=== PATIENT | female | born 1940 | race Caucasian/White ===

== ENCOUNTER 2022-11-01 12:17 | Inpatient (IN) | payer MEDICARE ==
[~2022-11-01] VITALS: Ht 157.5 cm; Wt 58.1 kg
[2022-11-01] MEDS ORDERED: MECLIZINE HCL 25 MG TABLET PO ONE (13:00)
[2022-11-01] MEDS ORDERED: IV NORMAL SALINE 1000 ML BAG IV ONE (13:00)
[2022-11-01] MEDS ORDERED: ONDANSETRON 4 MG/2 ML VIAL IV ONE (13:00)
[2022-11-01 13:19] LABS: HEMATOCRIT 40.8 % (31.2-41.9); MEAN CORPUSCULAR HEMOGLOBIN 31.2 uug (24.7-32.8); MEAN CORPUSCULAR VOLUME 90.1 fL (75.5-95.3); PLATELET COUNT (AUTO) 218 K/uL (179-408)
[2022-11-01] MEDS: MAGNESIUM SULFATE/D5W 100 ML IV SCH ×2 (13:30→15:15)
[2022-11-01 13:45] LABS: CARBON DIOXIDE 22 mmol/L (21-32); CHLORIDE 102 mmol/L (98-107); CREATININE 0.8 mg/dL (0.6-1.3); GLUCOSE 188 mg/dL (74-106); POTASSIUM 3.4 mmol/L (3.5-5.1); UREA NITROGEN, BLOOD 24 mg/dL (7-18)
[2022-11-01] MEDS ORDERED: IV NORMAL SALINE 250 ML IV ONE (13:49)
[2022-11-01] MEDS ORDERED: IOHEXOL 350 100 ML INFUS..BTL ONE (13:49)
[2022-11-01] MEDS ORDERED: SWABABLE VALVE TRANSFER SET EA MC ONE (13:49)
[2022-11-01] MEDS ORDERED: DILTIAZEM HCL IV 125 MG in IV DEXTROSE 5% 100 ML IV ONE (14:00)
[2022-11-01] MEDS ORDERED: DILTIAZEM HCL 25 MG IV IV ONE (14:00)
[2022-11-01] MEDS ORDERED: ASPIRIN 81 MG TAB.CHEW PO ONE (14:00)
--- NOTE | 2022-11-01 14:00 | NUR ---
Pt BIBA with c/o dizziness with nausea that started this morning, emesis absent. Seen by JORGE LUIS for MSE.
[2022-11-01] MEDS ORDERED: MECLIZINE HCL 25 MG TABLET ONE (14:12)
[2022-11-01] MEDS ORDERED: ASPIRIN 81 MG TAB.CHEW ONE (14:12)
[2022-11-01] MEDS ORDERED: ONDANSETRON 4 MG/2 ML VIAL ONE (14:12)
[2022-11-01 14:45] LABS: MAGNESIUM 1.7 mg/dL (1.8-2.4); PHOSPHOROUS 2.9 mg/dL (2.5-4.9)
[2022-11-01] MEDS ORDERED: MAGNESIUM SULFATE/D5W 100 ML ONE ×2 (14:55→16:33)
[2022-11-01] MEDS ORDERED: DILTIAZEM HCL 25 MG IV ONE (14:56)
--- NOTE | 2022-11-01 15:00 | NUR ---
Clip Riveter stated that pt needed PICC line. Explained to her that there was no order from the admitting nurse.
[2022-11-01] MEDS ORDERED: MAGNESIUM HYDROXIDE 30 ML LIQUID UDC PO PRN (15:30)
[2022-11-01] MEDS ORDERED: ONDANSETRON 4 MG/2 ML VIAL IV PRN (15:30)
[2022-11-01] MEDS ORDERED: ZOLPIDEM 5 MG TABLET PO PRN (15:30)
[2022-11-01] MEDS ORDERED: REMEDY ESSENTIAL ZINC PASTE 113 GM TP PRN (15:30)
[2022-11-01] MEDS ORDERED: ACETAMINOPHEN 325 MG TABLET PO PRN (15:30)
[2022-11-01 15:59] LABS: THYROID STIMULATING HORMONE 0.813 mIU/mL (0.358-3.740)
[2022-11-01] MEDS ORDERED: POTASSIUM CHLORIDE 20 MEQ TAB.PRT.SR PO ONE (16:00)
--- NOTE | 2022-11-01 16:00 | NUR ---
Pt is admitted on Telemetry unit, room 325, under the medical care of Dr. Caroline Baez with admitting dx of A-Fib with Rapid Ventricular Response.
--- NOTE | 2022-11-01 16:00 | NUR ---
Held Maricel Mccormick d/t pt's HR ranging between 60-70 and BP WNR. MD notified.
--- NOTE | 2022-11-01 16:28 | NUR ---
Gave report to Nora BYRD.
--- NOTE | 2022-11-01 17:21 | NUR ---
Pt was transported to Tele unit to Room 325 by [employer].
[2022-11-01 17:30] VITALS: BP 124/58
[2022-11-01] MEDS: POTASSIUM CHLORIDE 50 ML IV SCH ×2 (17:30→18:06)
--- NOTE | 2022-11-01 19:10 | NUR ---
Patient is awake, alert, oriented x 4, not in any form of distress, on room air. Peripheral IV on the left AC, patent with no signs of infection. Vital signs stable. Followed up with Caroline Baez STREET SUPERVISOR regarding patient's refusal of IV potassium 2nd bag and that there's also a PO potassium 40mEq due. Per STREET SUPERVISOR the PO dose is enough and it's OK not to administer the 2nd bag of IV potassium. Assisted patient with her needs and assisted to the bathroom to void then back to bed. Daughter at bedside. Munir light and frequently used items placed within reach. Endorsed accordingly to button sewer hand nurse.
[2022-11-01 20:00] VITALS: BP 150/63
--- NOTE | 2022-11-01 20:20 | NUR ---
Patient troponin 1537 notify Pattie Baez with order of EKG.
[2022-11-01] MEDS: ENOXAPARIN SODIUM 60 MG/0.6 ML DISP.SYRIN SQ SCH (21:34)
--- NOTE | 2022-11-01 22:20 | NUR ---
EKG DONE, SINUS RHYTHM SINUS SLOANE THE RESULTS.
[2022-11-02] VITALS: BP 104/56
[2022-11-02] MEDS ORDERED: IV NS 1000 ML 1,000 ML IV PRN (00:15)
[2022-11-02 01:42] LABS: *BILIRUBIN,URIN NEGATIVE (NEGATIVE); *BLOOD, URINE NEGATIVE (NEGATIVE); *CLARITY,URINE CLEAR (CLEAR); *COLOR,URINE YELLOW (YELLOW); *KETONES,URINE 4+ (NEGATIVE); *UROBILINOGEN,URINE 0.2 E.U./dl (NORMAL); LEUKOCYTE ESTERASE ,URINE NEGATIVE (NEGATIVE); NITRITE, URINE NEGATIVE (NEGATIVE); UGLUCOSE NEGATIVE (NEGATIVE)
--- NOTE | 2022-11-02 02:31 | NUR ---
Repeat troponin resulted 2295, notify Blossom Giordano Np with no new order at this time, cont to monitor.
[2022-11-02 04:00] VITALS: BP 108/67
[2022-11-02 06:25] LABS: MEAN CORPUSCULAR HEMOGLOBIN 31.6 uug (24.7-32.8); MEAN CORPUSCULAR VOLUME 89.2 fL (75.5-95.3); PLATELET COUNT (AUTO) 221 K/uL (179-408)
--- NOTE | 2022-11-02 06:39 | NUR ---
Patient awake, no sob no chest pain, sinus rhythm sinus teri on tele monitor, patient stated she fine, ambulate to the toilet for bladder elimination, no further episode of dizziness, nausea or diarrhea, cont to monitor.
[2022-11-02 06:48] LABS: CREATININE 0.8 mg/dL (0.6-1.3); MAGNESIUM 2.2 mg/dL (1.8-2.4); PHOSPHOROUS 2.9 mg/dL (2.5-4.9); POTASSIUM 3.8 mmol/L (3.5-5.1)
[2022-11-02] MEDS: ASPIRIN 81 MG TAB.CHEW PO SCH (09:21)
[2022-11-02] MEDS: ENOXAPARIN SODIUM 60 MG/0.6 ML DISP.SYRIN SQ SCH ×2 (09:23→21:00)
[2022-11-02 11:05] VITALS: BP 117/56
[2022-11-02] MEDS ORDERED: FLUV80TA2 PO (11:26)
[2022-11-02] MEDS ORDERED: CALC-952 PO (11:26)
[2022-11-02] MEDS ORDERED: AMLO1CAP6 PO (11:26)
[2022-11-02] MEDS ORDERED: ESTR-7 PO (11:26)
[2022-11-02] MEDS ORDERED: OMEG1CAP74 PO (11:26)
[2022-11-02] MEDS ORDERED: MECLIZINE HCL 12.5 MG TABLET PO PRN (12:45)
[2022-11-02 15:01] VITALS: BP 133/58
[2022-11-02 20:34] VITALS: BP 141/64
[2022-11-02] MEDS ORDERED: ATORVASTATIN 40 MG TABLET PO SCH (21:00)
[2022-11-03 00:05] VITALS: BP 123/57
[2022-11-03 04:05] VITALS: BP 147/66
[2022-11-03] MEDS: ENOXAPARIN SODIUM 60 MG/0.6 ML DISP.SYRIN SQ SCH (09:00)
[2022-11-03] MEDS: ASPIRIN 81 MG TAB.CHEW PO SCH (09:15)
--- NOTE | 2022-11-03 09:15 | NUR ---
DEPARTED TO [place] FOR PROCEDURE. ALERT AND ABLE TO MAKE NEEDS KNOWN. DENIES PAIN. VITALS STABLE. TRANSFERRED VIA STRETCHER. ROCHELLE MONTANEZ
--- NOTE | 2022-11-03 10:46 | NUR ---
ARRIVED FROM [place], ALERT AND ABLE TO MAKE NEEDS KNOWN, DENIES PAIN. NO COMPLAINTS OF DIZZINESS. VITALS STABLE. AMBULATES TO REST ROOM VIA STANDBY ASSIST. CURRENTLY IN BED. DAUGHTER AT BEDSIDE. CALL HELM WITHIN REACH. GERMAN Brown RN
[2022-11-03] MEDS ORDERED: ATOR40TA PO (11:43)
[2022-11-03] MEDS ORDERED: APIX2.5T PO (11:43)
[2022-11-03] MEDS ORDERED: MECL-159 PO (11:43)
[2022-11-03 11:44] VITALS: BP 123/52
--- NOTE | 2022-11-03 16:02 | NUR ---
DISCHARGED TO HOME. ALERT AND ABLE TO MAKE NEEDS KNOWN. DENIES PAIN. VITALS STABLE. DISCHARGE INSTRUCTIONS GIVEN TO PATIENT AND DAUGHTER AT BEDSIDE BY INTRUSION ANALYST AND CHARGE NURSE BETTY. PATIENT AND FAMILY VERBALIZE UNDERSTANDING. PATIENT TO MANAGED CARE SPECIALIST MEDICATION AT [facility]. IVs TO LAC AND L HAND REMOVED BY INTRUSION ANALYST, NO BLEEDING NOTED, PRESSURE DRESSING APPLIED. PATIENT DEPARTED FROM FACILITY AT APPROXIMATELY 1602, INTRUSION ANALYST ACCOMPANIED PATIENT DOWNSTAIRS VIA W/C. ALL PERSONAL BELONGINGS ARE I DAUGHTERS POSSESSION. NO CONCERNS. EXPRESSED UPON DEPARTURE.
== END 2022-11-03 16:00 | disposition home or self-care (01) | DRG 282 ==
LOC: ER 12:17 → TRANSITION 15:23 → TELE3 16:38
PROVIDERS: ADMIT Nurse Practitioner Acute Care; ATTEND Nurse Practitioner Acute Care
DX: I48.0 Paroxysmal atrial fibrillation (principal); I21.A1 Myocardial infarction type 2; E87.6 Hypokalemia; E78.5 Hyperlipidemia, unspecified; E83.42 Hypomagnesemia; I10 Essential (primary) hypertension; Z20.822 Contact with and (suspected) exposure to COVID-19
CPT/HCPCS: 36415; 70450; 70496; 71045; 83735; 84100; 84443; 84484; 85025; 87400; 93005; 93307; G0378; J1650; J2405; J3475; J3480; J3490; J7040; J8597; Q9967